=== PATIENT | female | born 1970 | race Caucasian/White ===

== ENCOUNTER 2022-03-13 11:06 | Outpatient (REF) | payer OTHER, SELFPAY ==
--- NOTE | ~2022-03-13 | XR_ITS ---
EXAMINATION: SACRUM/COCCYX. RIGHT SHOULDER. CLINICAL INFORMATION: Pain right shoulder, sacrum and/coccyx region./coccyx COMPARISON: None TECHNIQUE: Right shoulder 4 views. Sacrum/coccyx 3 views. FINDINGS: Right shoulder: There is no visible acute fracture, dislocation or subluxation. No bony erosive changes. The soft tissues are normal. Sacrum and/or coccyx: The SI joints are symmetrical. There is no visible acute fracture, dislocation or subluxation seen. There is no lytic process. There is a retroverted uterus with IUD. XR/XR shoulder RT min 2V IMPRESSION: Unremarkable right shoulder exam. Unremarkable sacrum and/or coccyx.
--- NOTE | ~2022-03-13 | XR_ITS ---
EXAMINATION: SACRUM/COCCYX. RIGHT SHOULDER. CLINICAL INFORMATION: Pain right shoulder, sacrum and/coccyx region./coccyx COMPARISON: None TECHNIQUE: Right shoulder 4 views. Sacrum/coccyx 3 views. FINDINGS: Right shoulder: There is no visible acute fracture, dislocation or subluxation. No bony erosive changes. The soft tissues are normal. Sacrum and/or coccyx: The SI joints are symmetrical. There is no visible acute fracture, dislocation or subluxation seen. There is no lytic process. There is a retroverted uterus with IUD. XR/XR sacrum coccyx min 2V IMPRESSION: Unremarkable right shoulder exam. Unremarkable sacrum and/or coccyx.
== END 2022-03-13 11:07 | disposition home or self-care (01) ==
LOC: HO.XRAY 11:06
PROVIDERS: PCP Physician Assistant; Visit Provider Nurse Practitioner Family
DX: M53.3 Sacrococcygeal disorders, not elsewhere classified (principal); M25.511 Pain in right shoulder; G89.29 Other chronic pain; L30.9 Dermatitis, unspecified; Z79.899 Other long term (current) drug therapy
CPT/HCPCS: 72220; 73030; 99202

== ENCOUNTER 2022-05-16 09:08 | Outpatient (REF) | payer OTHER, SELFPAY ==
--- NOTE | ~2022-05-16 | MR_ITS ---
MR CERVICAL SPINE WITHOUT IV CONTRAST CLINICAL INFORMATION: Other spondylosis/radiculopathy. COMPARISON: None available. TECHNIQUE: MRI of the cervical spine was obtained using routine sequences without contrast. FINDINGS: Straightening the cervical lordosis. The vertebral body heights are maintained. The disc volumes are preserved. There is no bone marrow edema. There are no acute fractures. Craniocervical junction is unremarkable. There are no cord signal changes. The cervical arterial flow voids are maintained. There are no significant extraspinal soft tissue findings. Partially imaged intracranial compartment is unremarkable. C2-C3: Posterior disc contour normal. Facet arthropathy results in mild right-sided foraminal encroachment. C3-C4: Slight annular disc bulge. No central canal stenosis and no foraminal stenosis. C4-C5: Small annular disc bulge. Uncovertebral joint spurring and facet arthropathy result in mild bilateral foraminal encroachment. C5-C6: A shallow left paracentral/left lateral disc protrusion mildly narrows the central canal, partially effaces the left axillary recess, and results in moderate left-sided foraminal stenosis. No central canal and no right foraminal stenosis. Small right foraminal perineural cyst. C6-C7: Disc contour is normal. No central canal stenosis and no foraminal stenosis. C7-T1: Disc contour is normal. No central canal stenosis and no foraminal stenosis. MR/MR cervical spine wo con IMPRESSION: At C5-C6, a shallow left paracentral/left lateral disc protrusion mildly narrows the central canal, partially effaces the left axillary recess, and results in moderate left-sided foraminal stenosis. Additional mild spondylitic changes throughout the cervical spine as discussed above. There is no severe central canal stenosis and there is no severe foraminal stenosis within the cervical spine.
== END 2022-05-16 09:09 | disposition home or self-care (01) ==
LOC: HO.MRI 09:08
PROVIDERS: Visit Provider Nurse Practitioner Family
DX: M47.22 Other spondylosis with radiculopathy, cervical region (principal)
CPT/HCPCS: 72141